=== PATIENT | male | born 1995 | race Caucasian/White ===

== ENCOUNTER 2019-02-03 15:10 | Emergency (ER) | payer MEDICAID, OTHER, SELFPAY ==
[~2019-02-03] VITALS: Ht 167.6 cm; Wt 64.3 kg
[2019-02-03 15:16] VITALS: BP 114/75
[2019-02-03] MEDS ORDERED: L.E.T SOLUTION TP ONE ×2 (15:37→16:00)
[2019-02-03] MEDS ORDERED: LIDOCAINE-MPF 1%, 5ML ONE (16:02)
[2019-02-03] MEDS ORDERED: BACITRACIN ZINC OINT 500U/GM, 0.9 GM ONE (16:08)
[2019-02-03] MEDS ORDERED: LIDOCAINE 1%, 10ML INFIL ONE (16:30)
[2019-02-03] MEDS ORDERED: DIPH,PERTUSS(ACELL),TET VAC/PF 0.5 ML IM-VACC ONE (16:30)
[2019-02-03 17:29] LABS: ANION GAP 7 mmol/L (5-15); CALCIUM 9.4 mg/dL (8.5-10.1); CHLORIDE 104 mmol/L (98-107)
[2019-02-03 17:33] LABS: ALANINE AMINOTRANSFERASE 22 U/L (12-78); ALKALINE PHOSPHATASE 66 U/L (45-117); BILIRUBIN,TOTAL 0.3 mg/dL (0.2-1.0); CREATININE 0.76 mg/dL (0.7-1.3); TOTAL PROTEIN 8.1 g/dL (6.4-8.2)
[2019-02-03 17:43] LABS: BASOPHILS # (AUTO) 0.03 x10^3/uL (0-0.1); BASOPHILS % (AUTO) 0 % (0-1); EOSINOPHILS # (AUTO) 0.07 x10^3/uL (0-0.4); EOSINOPHILS % (AUTO) 1 % (1-7); LYMPHOCYTES # (AUTO) 2.31 x10^3/uL (1-3.4); LYMPHOCYTES % (AUTO) 16 % (22-44); MD NO; MEAN CORPUSCULAR HEMOGLOBIN 32.2 pg (27.5-34.5); MEAN CORPUSCULAR HGB CONC 33.6 g/dL (33.2-36.2); MEAN CORPUSCULAR VOLUME 95.8 fL (81-97); MEAN PLATELET VOLUME 9.4 fL (7.4-10.4); MONOCYTES # (AUTO) 1.09 x10^3/uL (0.2-0.8); MONOCYTES % (AUTO) 8 % (2-9); NEUTROPHILS % (AUTO) 76 % (42-75); PLATELET COUNT 205 x10^3/uL (130-400); RED BLOOD COUNT 5.03 x10^6/uL (4.38-5.82); RED CELL DISTRIBUTION WIDTH 12.6 % (9.4-14.8)
== END 2019-02-03 18:17 | disposition home or self-care (01) ==
LOC: ED 16:48
DX: S01.81XA Laceration without foreign body of other part of head, initial encounter (principal); R56.9 Unspecified convulsions; X58.XXXA Exposure to other specified factors, initial encounter; Y93.89 Activity, other specified; Y92.89 Other specified places as the place of occurrence of the external cause; Y99.8 Other external cause status
CPT/HCPCS: 12011; 36415; 80053; 80164; 83690; 85025; 90471; 90715

== ENCOUNTER 2019-09-30 09:13 | Emergency (ER) | payer OTHER, MEDICAID ==
[~2019-09-30] VITALS: Ht 165.1 cm; Wt 60.0 kg
--- NOTE | 2019-09-30 09:16 | NUR ---
PT BROUGHT IN BY JUAN FROM [facility] AFTER EXPERIENCING 4 SEIZURES AT HOME. PATIENT WAS MEDICATED WITH 20 MG OF DIAZAPEM. THE PATIENT IS ALERT AND AWAKE AT BASELINE PER CARE PROVIDED. THE PATIENT HAS BEEN OUT OF MEDS SINCE WEDNESDAY. SEIZURE PRECAUTIONS IN PLACE.
--- NOTE | 2019-09-30 09:26 | NUR ---
CA ADLER AT BEDSIDE FOR EVALUATION
[2019-09-30] MEDS ORDERED: VALPROATE SODIUM 500 MG in SODIUM CHLORIDE 0.9% 100 ML IV ONE (09:30)
[2019-09-30] MEDS ORDERED: SODIUM CHLORIDE FLUSH 10ML SYR IVF ONE (09:30)
[2019-09-30 10:04] LABS: BASOPHILS # (AUTO) 0.04 x10^3/uL (0-0.1); BASOPHILS % (AUTO) 1 % (0-1); EOSINOPHILS # (AUTO) 0.05 x10^3/uL (0-0.4); EOSINOPHILS % (AUTO) 1 % (1-7); LYMPHOCYTES # (AUTO) 2.05 x10^3/uL (1-3.4); LYMPHOCYTES % (AUTO) 36 % (22-44); MD NO; MEAN CORPUSCULAR HEMOGLOBIN 31.3 pg (27.5-34.5); MEAN CORPUSCULAR HGB CONC 33.4 g/dL (33.2-36.2); MEAN CORPUSCULAR VOLUME 93.8 fL (81-97); MEAN PLATELET VOLUME 9.1 fL (7.4-10.4); MONOCYTES # (AUTO) 0.71 x10^3/uL (0.2-0.8); MONOCYTES % (AUTO) 13 % (2-9); NEUTROPHILS # (AUTO) 2.83 x10^3/uL (1.8-6.8); NEUTROPHILS % (AUTO) 50 % (42-75); PLATELET COUNT 172 x10^3/uL (130-400); RED BLOOD COUNT 4.78 x10^6/uL (4.38-5.82); RED CELL DISTRIBUTION WIDTH 13.1 % (9.4-14.8)
[2019-09-30 10:13] VITALS: BP 102/62
[2019-09-30 10:17] LABS: ALBUMIN 3.5 g/dL (3.4-5.0); ANION GAP 5 mmol/L (5-15); CALCIUM 8.8 mg/dL (8.5-10.1); CHLORIDE 105 mmol/L (98-107); CREATININE 0.68 mg/dL (0.7-1.3)
--- NOTE | 2019-09-30 10:45 | NUR ---
ERMD SAHM AT BEDSIDE FRO EVALUATION.
--- NOTE | 2019-09-30 11:12 | NUR ---
DISCHARGE INSTRUCTIONS REVIEWED.
== END 2019-09-30 11:32 | disposition home or self-care (01) ==
LOC: ED 10:19
DX: G40.419 Other generalized epilepsy and epileptic syndromes, intractable, without status epilepticus (principal)
CPT/HCPCS: 36415; 80048; 80164; 82040; 85025; 96365; 99283